=== PATIENT | male | born 1950 | race Caucasian/White ===

== ENCOUNTER → 2017-03-31 | Outpatient (CLI) | payer OTHER ==
[~2017-03-31] VITALS: Ht 188 cm; Wt 104.3 kg
[~2017-03-31] MED LIST: CARBIDOPA-LEVO1 EAC9 PO; LOPRESSOR100 M1 PO; PRINIVIL20 MG PO; STOOL SOFTENER100 M1 PO; TRIGLIDE160 MG PO; TRIHEXYPHENIDYL2 M2 PO; VITAMIN D1000 UNI1 PO; ZOCOR20 MG PO
== END | disposition home or self-care (01) ==
LOC: GI 06:53
DX: K20.9 Esophagitis, unspecified (principal); K21.9 Gastro-esophageal reflux disease without esophagitis
CPT/HCPCS: 62110; 62900